=== PATIENT | female | born 1970 | race African-American/Black ===

== ENCOUNTER 2019-04-22 10:26 | Emergency (ER) | payer SELFPAY ==
[2019-04-22 10:58] VITALS: BP 117/80
--- NOTE | 2019-04-22 11:07 | UC ---
UC General HPI - HPI Summary HPI Summary: PT IS C/O A POSSIBLE BOIL IN HER lL ARMPIT X 2 DAYS. SHE HAD TRIED TO SQUEEZE IT WITHOUT RELIEF. NO HX MRSA, DM OR FEVER. SHE IS VISITING FAMILY FROM [facility]. - History of Current Complaint Chief Complaint: UCSkin Stated Complaint: LEFT UNDER ARM SKIN CONCERN Time Seen by Provider: 04/22/19 10:51 Hx Obtained From: Patient Onset/Duration: Gradual Onset Timing: Constant Pain Intensity: 9 - Allergy/Home Medications Allergies/Adverse Reactions: Allergies Allergy/AdvReac Type Severity Reaction Status Date / Time No Known Allergies Allergy Verified 04/22/19 10:53 Home Medications: Home Medications NK [No Home Medications Reported] 04/22/19 [History Confirmed 04/22/19] PMH/Surg Hx/FS Hx/Imm Hx Previously Healthy: Yes - Surgical History Surgical History: None - Family History Known Family History: Positive: Non-Contributory - Social History Alcohol Use: Occasionally Substance Use Type: None Smoking Status (MU): Light Every Day Tobacco Smoker Type: Cigarettes Amount Used/How Often: ~1/4 PPD Length of Time of Smoking/Using Tobacco: Since Age 16 Household Exposure Type: Cigarettes Review of Systems All Other Systems Reviewed And Are Negative: No Constitutional: Negative: Fever, Chills Skin: Positive: Rash - L AXILLA Gastrointestinal: Negative: Vomiting, Nausea Musculoskeletal: Negative: Decreased ROM Physical Exam Triage Information Reviewed: Yes Appearance: Well-Appearing Vital Signs: Initial Vital Signs Temp 98 F 04/22/19 10:49 Pulse 84 04/22/19 10:49 Resp 18 04/22/19 10:49 BP 117/80 04/22/19 10:49 Pulse Ox 100 04/22/19 10:49 Vital Signs Reviewed: Yes Neck: Positive: Supple Respiratory: Positive: No respiratory distress Cardiovascular: Positive: RRR Musculoskeletal: Positive: ROM Intact - LUE Neurological: Positive: Alert Psychological: Positive: Age Appropriate Behavior Skin Exam: Normal, Other - L axilla= 2cm area of swelling, tenderness and fluctuance but not erythema. Yellow puss without odor drained with gentle pressure. Course/Dx - Course Course Of Treatment: PROCEDURE: time out. site prep betadine. superficial local with 1% lidocaine and 30g needle. tip of #11 blade used to make a superficial stab incision. small amount of puss drained. wound irrigated then covered with topical antibiotic and non adhering dressing. only scant bleeding. sterile technique used and pt tolerated well. culture was obtained. - Diagnoses Provider Diagnosis: Abscess of axilla, left Discharge ED - Sign-Out/Discharge Documenting (check all that apply): Patient Departure All imaging exams completed and their final reports reviewed: No Studies - Discharge Plan Condition: Stable Disposition: HOME Patient Education Materials: Abscess (ED) Referrals: No Primary Care Phys,NOPCP [Primary Care Provider] - Additional Instructions: YOU MAY RETURN IN 2 DAYS FOR A WOUND CHECK OR SOONER IF ANY CONCERNS - Billing Disposition and Condition Condition: STABLE Disposition: Home
[2019-04-22] MEDS: Ibuprofen ADULT LIQ* 600 MG/30 ML UDC PO ONE (11:13)
[2019-04-22] MEDS: Acetaminophen TAB* 325 MG PO ONE (11:13)
[2019-04-22] MEDS: Lidocaine 1% MPF ** 5 ML VIAL INJ ONE (11:14)
--- NOTE | 2019-04-24 08:13 | ED ---
Progress - Progress Note Progress Note: bactrim script sent; culture with proteus growth; please call patient. Course/Dx - Diagnoses Provider Diagnoses: Abscess of axilla, left Discharge ED - Sign-Out/Discharge Documenting (check all that apply): Patient Departure All imaging exams completed and their final reports reviewed: No Studies - Discharge Plan Condition: Stable Disposition: HOME Prescriptions: Sulfamethox/Trimethoprim DS* [Bactrim DS 800/160 TAB*] 1 tab PO BID #20 tab Patient Education Materials: Abscess (ED) Referrals: No Primary Care Phys,NOPCP [Primary Care Provider] - Additional Instructions: YOU MAY RETURN IN 2 DAYS FOR A WOUND CHECK OR SOONER IF ANY CONCERNS - Billing Disposition and Condition Condition: STABLE Disposition: Home
== END 2019-04-22 11:38 | disposition home or self-care (01) ==
LOC: UCCORT 10:26
DX: L02.412 Cutaneous abscess of left axilla (principal); B96.4 Proteus (mirabilis) (morganii) as the cause of diseases classified elsewhere; F17.210 Nicotine dependence, cigarettes, uncomplicated
CPT/HCPCS: 10060; 87070; 87076; 87077; 87186; 87205; 87640; 87641; 99202; A9270-GY; G0463